=== PATIENT | male | born 1990 | race Two or more races ===

== ENCOUNTER 2018-09-23 09:35 | Emergency (ER) | payer SELFPAY ==
[~2018-09-23] VITALS: Ht 177.8 cm; Wt 90.7 kg
[2018-09-23 09:35] VITALS: BP 150/90
[2018-09-23] MEDS ORDERED: Methocarbamol 750mg tab ORAL ONE (10:15)
[2018-09-23] MEDS ORDERED: Ketorolac 60mg Inj IM ONE (10:15)
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
[2018-09-23] MEDS ORDERED: IBUPROFEN600 MG ORAL (11:25)
[2018-09-23] MEDS ORDERED: ROBAXIN-750750 MG PO (11:25)
[2018-09-23 11:37] VITALS: BP 132/78
--- NOTE | 2018-09-23 15:00 | Diagnostic Imaging Report ---
Indication: Trauma Technique: 3 views of the cervical spine Comparison: none Findings: Bony alignment is normal. No prevertebral soft tissue swelling. No acute fractures. No dislocations. Vertebral body heights are preserved. Disc spaces are preserved. Impression: Negative
== END 2018-09-23 11:41 | disposition home or self-care (01) ==
LOC: EDBD 09:35 → EMR 09:54
DX: S33.5XXA Sprain of ligaments of lumbar spine, initial encounter (principal); V43.52XA Car driver injured in collision with other type car in traffic accident, initial encounter; Y92.410 Unspecified street and highway as the place of occurrence of the external cause; M54.2 Cervicalgia
CPT/HCPCS: 72040; 96372; 99283